=== PATIENT | female | born 1945 | race Caucasian/White ===

== ENCOUNTER → 2016-09-29 | Outpatient (CLI) | payer OTHER | LOC: FIMAGING 11:07 | DX: Z12.31 Encounter for screening mammogram for malignant neoplasm of breast (principal) | CPT/HCPCS: G0202 ==

== ENCOUNTER 2016-11-16 08:17 | Day surgery (SDC) | payer OTHER ==
[2016-11-16] MEDS ORDERED: fentaNYL 100 MCG/2 ML INJ ONE (08:56)
[2016-11-16] MEDS ORDERED: PROPOFOL 200 MG/20 ML VIAL ONE (08:57)
[2016-11-16] MEDS ORDERED: MIDAZOLAM 2 MG/2 ML VIAL ONE (10:12)
[2016-11-16] MEDS ORDERED: LIDO/EPI 1% **Not for Epidural 20 ML MDV ONE (10:23)
--- NOTE | 2016-11-16 11:46 | GOP ---
[f rep st] OPERATIVE REPORT DATE OF OPERATION: SURGEON: Rachael Harrington MD ANESTHESIA: General with LMA. ANESTHESIOLOGIST: Terrell Rodriguez MD. 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 PROCEDURE PERFORMED: Wide local excision of perineum. FINDINGS: A very vague-appearing white lesion on the perineum. It was probably about 4 x 4 mm in t he midline. Full exam of the labia, external genitalia, as well as the anus done and no other signi ficant findings noted. ESTIMATED BLOOD LOSS: Minimal. INDICATIONS: Patient is a 71-year-old, who was noted at her annual exam to have a lesion on the per ineum. Resection of this in the office showed high-grade dysplasia with positive margins throughout . Recommend wide local excision to remove any residual tissue, and also to have negative margins of at least 0.5 cm, and also hopefully to prevent recurrence. DESCRIPTION OF PROCEDURE: With informed consent signed, patient taken to the operative room, placed under general anesthesia. Placed in the low dorsal lithotomy position. Bladder previously emptied . Incision site area injected with 1% lidocaine with epinephrine, and then marker used to designate excision area, measuring about 1 cm lateral on each side of the perineum, and the 3-4 mm into the i ntroitus, and onto the perineum. In elliptical-like fashion scalpel used to remove the marked area, and this was handed off for specimen, and then 4-0 Monocryl used to close the excision edges in int errupted sutures. Hemostasis was noted. Patient placed in supine position, awakened in the operati ng room, and taken to the recovery room in stable condition. Tolerated procedure well. /[id number]/MODL
== END 2016-11-16 13:33 | disposition home or self-care (01) ==
LOC: FSGY 08:17
PROVIDERS: ATTEND Obstetrics & Gynecology Gynecology
PROC: 0UBMXZZ Excision of Vulva, External Approach (ICD-10-PCS; principal; 2016-11-16 09:45)
DX: D07.1 Carcinoma in situ of vulva (principal); I10 Essential (primary) hypertension; G47.33 Obstructive sleep apnea (adult) (pediatric); E11.9 Type 2 diabetes mellitus without complications
CPT/HCPCS: J2250; J2704; J3010

== ENCOUNTER 2017-06-06 18:06 | Inpatient (IN) | payer OTHER ==
--- NOTE | 2017-06-06 18:29 | EDPHY ---
H & P Stated Complaint: Right Shoulder pain after fall Time Seen by Provider: 06/06/17 18:17 HPI/ROS: CHIEF COMPLAINT: Right elbow and right shoulder pain post mechanical fall HISTORY OF PRESENT ILLNESS: 72-year-old female with up-to-date tetanus arrives via ambulance, not a trauma activation, after she was walking [place] of the recreation center after a yoga class, stepped in a pothole that she did not see in the dark, fell onto her right shoulder and elbow. Complaining of pain to right shoulder and elbow. Abrasion to right elbow dorsal aspect. No head injury. No hand or wrist pain free. No back pain or injury. No midline C- spine pain or injury. No alcohol or drug use. No loss of consciousness. PRIMARY CARE PROVIDER: Dr. Azalia Cordero REVIEW OF SYSTEMS: A ten point review of systems was performed and is negative with the exception of the items mentioned in the HPI PAST MEDICAL/SURGICAL HISTORY: no anticoagulant use, tetanus is up-to-date SOCIAL HISTORY: denies alcohol use at time of incident PHYSICAL EXAM 1) GENERAL: Well-developed, well-nourished, alert and oriented. Appears anxious uncomfortable. Answering questions appropriately. 2) HEAD: Normocephalic, atraumatic 3) HEENT: Pupils equal, round, reactive to light bilaterally. Negative Horners. Nasopharynx, oropharynx, clear. No deformity or angulation of nose. No septal hematoma. No rhinorrhea. No oral trauma. Ears bilaterally with normal tympanic membranes. No hemotympanum. No fluid or blood in the external auditory canal. No raccoon eyes. No Shoemaker sign. 4) NECK: No cervical collar is on. Posterior cervical spine is nontender, no stepoff, no effusion. Full range of motion which does not elicit any midline cervical spine pain, no posterior midline tenderness, no step-off. 5) LUNGS: Clear to auscultation bilaterally, no wheezes, no rhonchi, no retractions. No obvious signs of trauma. No chest wall pain. No flaring, no grunting. Moving symmetrically. No crepitus. 6) HEART: Regular rate and rhythm, 7) ABDOMEN: No guarding, no rebound, no focal tenderness, no peritoneal signs, no signs of trauma, no ecchymosis 8) MUSCULOSKELETAL: Right upper extremity: Guarding right shoulder, tender to palpation right lateral shoulder. No visible or palpable deformity. No tenting of skin. Puncture wound or laceration. Abrasion to the right dorsal elbow all with so she had pain. No radial head pain. Otherwise the humerus, forearm, wrist hand are nontender. Radial ulnar median nerve function intact distally with brisk pulses and capillary refill. Otherwise, Moving all extremities, no focal areas of tenderness, no obvious trauma. 9) BACK: No midline vertebral tenderness, no fluctuance, no step-off, no obvious trauma, no visual or palpable abnormality. 10) SKIN: abrasion right dorsal elbow DIFFERENTIAL DIAGNOSIS: in no particular order including but not limited to fracture, dislocation, sprain, strain - Personal History Current Tetanus/Diphtheria Vaccine: Yes Current Tetanus Diphtheria and Acellular Pertussis (TDAP): Yes - Medical/Surgical History Hx Asthma: No Hx Chronic Respiratory Disease: No Hx Diabetes: No Hx Cardiac Disease: No Hx Renal Disease: No Hx Cirrhosis: No Hx Alcoholism: No Hx HIV/AIDS: No Hx Splenectomy or Spleen Trauma: No Other PMH: PMH: anxiety, depression, hypothriod, high cholesterol,. PSH: hip replacement right, - Social History Smoking Status: Former smoker Constitutional: Initial Vital Signs Temperature (C) 36.0 C 06/06/17 18:11 Heart Rate 62 06/06/17 18:11 Respiratory Rate 18 06/06/17 18:11 Blood Pressure 127/83 H 06/06/17 18:11 O2 Sat (%) 100 06/06/17 18:11 O2 Delivery Mode Room Air Allergies/Adverse Reactions: scallops Allergy (Verified 11/04/15 09:34) Home Medications: Medication Instructions Recorded Ascorbic Acid [Vitamin C 500 mg 500 mg PO DAILY 09/27/15 (*)] Aspirin EC [Aspirin EC 81 mg (*)] 81 mg PO MOWEFR 09/27/15 Cholecalciferol Vit D3 [Vitamin D3 4,000 units PO DAILY 09/27/15 2000 units] Herbals/Supplements -Info Only 1 ea PO DAILY 09/27/15 Levothyroxine [Synthroid 75 mcg 37.5 mcg PO WEFR@06 09/27/15 (*)] Levothyroxine [Synthroid 75 mcg 75 mcg PO DAILY06 09/27/15 (*)] Multivitamins [Multivitamin (*)] 1 each PO DAILY 09/27/15 [place]-3 Fatty Acids [Fish Oil 1000 2,000 mg PO DAILY 09/27/15 mg (*)] Simvastatin [Zocor] 20 mg PO HS 09/27/15 Venlafaxine Xr [Effexor Xr 75MG 150 mg PO DAILY 09/27/15 (*)] Acetaminophen [Tylenol 325mg (*)] 325 - 650 mg PO Q4 PRN #0 tab 11/16/15 Medical Decision Making - Diagnostics Imaging Results: Imaging Impressions Shoulder X-Ray 06/06/17 18:20 Impression: Humeral neck fracture, comminuted, with the greater tuberosity completely fractured as a separate piece. Elbow X-Ray 06/06/17 18:26 Impression: 1. No fracture. 2. No radiopaque soft tissue foreign body within the laceration seen. ED Course/Re-evaluation: Care of patient under supervision of secondary supervising physician Dr Padilla with whom I discussed care/case 728 pm: Re-evaluation, patient complaining of continued pain, has expressed concern about being discharged she lives by herself. 8:00 p.m.: Re-evaluation, complaining of continued pain. We discussed the risks benefits of being discharged home. Given patient's age and difficulty controlling her pain, she was by herself, I do not think that discharge home is appropriate, she agrees with this. Plan will be admission with orthopedic consultation, pain control, PT OT. 8:05 p.m.: Consultation with hospitalist Dr. Lanre Posada who will admit patient, request patient be Inpatient 8:16 p.m.: Phone consultation with Orthopedics on-call Dr. Pedro Santos will consult orthopedics. He requested noncontrast CT be obtained. - Data Points Medications Given: Discontinued Medications Ketorolac Tromethamine (Toradol) 15 mg IVP EDNOW ONE Stop: 06/06/17 19:30 Last Admin: 06/06/17 19:53 Dose: 15 mg Oxycodone/Acetaminophen (Percocet 5/325) 1 tab PO EDNOW ONE Stop: 06/06/17 19:14 Last Admin: 06/06/17 19:14 Dose: 1 tab Departure - Departure Disposition: [facility] Clinical Impression: Abrasion of right elbow Qualifiers: Encounter type: initial encounter Qualified Code(s): S50.311A - Abrasion of right elbow, initial encounter Fracture of neck of right humerus Qualifiers: Encounter type: initial encounter Fracture type: closed Qualified Code(s): S42.211A - Unspecified displaced fracture of surgical neck of right humerus, initial encounter for closed fracture Condition: Fair Referrals: Patient,NotPresent [Unknown] - As per Instructions
[2017-06-06] MEDS ORDERED: OXYCODONE/APAP 5/325 TAB ONE (19:08)
[2017-06-06] MEDS ORDERED: OXYCODONE/APAP 5/325 TAB PO ONE (19:13)
[2017-06-06] MEDS ORDERED: KETOROLAC 30 MG/1 ML SDV IVP ONE (19:29)
[2017-06-06 21:31] LABS: % IMMATURE GRANULYOCYTES 0.5 % (0.0-1.1); ABSOLUTE IMMATURE GRANULOCYTES 0.05 10^3/uL (0.00-0.10); ADD DIFF? NO; ADD MORPH? NO; ADD SCAN? NO; ATYPICAL LYMPHOCYTE FLAG 0 (0-99); FRAGMENT RBC FLAG 0 (0-99); HEMATOCRIT 42.5 % (38.0-47.0); HEMOGLOBIN 15.3 g/dL (12.6-16.3); LEFT SHIFT FLG 0 (0-99); LIPEMIA HEMOLYSIS FLAG 90 (0-99); MEAN CELL HEMOGLOBIN 31.4 pg (27.9-34.1); MEAN CELL VOLUME 87.1 fL (81.5-99.8); MEAN PLATELET VOLUME 9.3 fL (8.7-11.7); PLATELET CLUMPS FLAG 0 (0-99); PLATELET COUNT 187 10^3/uL (150-400); RED BLOOD CELL COUNT 4.88 10^6/uL (4.18-5.33); RED CELL DISTRIBUTION WIDTH 13.2 % (11.5-15.2)
[2017-06-06 21:41] LABS: INR 0.96 (0.83-1.16)
[2017-06-06 21:42] LABS: APTT 27.3 SEC (23.0-38.0)
[2017-06-06 21:45] LABS: ANION GAP 14 mEq/L (8-16); CARBON DIOXIDE 22 mEq/l (22-31); CHLORIDE 105 mEq/L (97-110); CREATININE 0.6 mg/dL (0.6-1.0); GLOMERULAR FILTRATION RATE > 60; GLUCOSE 99 mg/dL (70-100); POTASSIUM 3.5 mEq/L (3.5-5.2); SODIUM 141 mEq/L (134-144)
[2017-06-06] MEDS ORDERED: ONDANSETRON DISINTEGRATING 4 MG TAB PO PRN (22:07)
[2017-06-06] MEDS ORDERED: HYDROmorphone HCL/NS/PF 0.4 MG/2 ML SYR IVP PRN (22:07)
[2017-06-06] MEDS ORDERED: ONDANSETRON 4 MG/2 ML VIAL IVP PRN (22:07)
[2017-06-06] MEDS: oxyCODONE IR 5 MG TAB PO PRN (22:26)
--- NOTE | 2017-06-06 22:55 | PDGENHP ---
History and Physical - Chief Complaint Fall, R arm injury - History of Present Illness 72 yo F w/ hypothyroid presents after a fall. She was leaving yoga tonight and stepped in a pothole in the dark. She fell and injured her R arm/shoulder. Upon arrival in the ED she was noted to have a humeral neck fracture. She lives independently and was concerned about her ability to function with the pain so she was admitted for orthopedic consultation and pain control. Currently her pain is well controlled after oral opiates in the ED. History Information - Allergies/Home Medication List Allergies/Adverse Reactions: scallops Allergy (Verified 11/04/15 09:34) Home Medications: Ascorbic Acid [Vitamin C 500 mg (*)] 500 mg PO DAILY 09/27/15 [Last Taken ] Aspirin EC [Aspirin EC 81 mg (*)] 81 mg PO MOWEFR 09/27/15 [Last Taken 06/04/17] Cholecalciferol Vit D3 [Vitamin D3 2000 units] 4,000 units PO DAILY 09/27/15 [ Last Taken 06/05/17] Herbals/Supplements -Info Only 1 ea PO DAILY 09/27/15 [Last Taken 06/05/17] Levothyroxine [Synthroid 75 mcg (*)] 37.5 mcg PO WEFR@06 09/27/15 [Last Taken ] Levothyroxine [Synthroid 75 mcg (*)] 75 mcg PO DAILY06 09/27/15 [Last Taken ] Multivitamins [Multivitamin (*)] 1 each PO DAILY 09/27/15 [Last Taken 06/06/17] [place]-3 Fatty Acids [Fish Oil 1000 mg (*)] 2,000 mg PO DAILY 09/27/15 [Last Taken 06/05/17] Simvastatin [Zocor] 20 mg PO HS 09/27/15 [Last Taken 06/05/17] Venlafaxine Xr [Effexor Xr 75MG (*)] 150 mg PO DAILY 09/27/15 [Last Taken ] I have personally reviewed and updated: family history, medical history - Past Medical History Additional medical history: Hypothyroid - Surgical History Additional surgical history: Hip arthroplasty - Family History Positive for: cancer - Social History Smoking Status: Former smoker Review of Systems Review of Systems: ROS: 10pt was reviewed & negative except for what was stated in HPI & below Physical Exam Physical Exam: Temp Pulse Resp BP Pulse Ox 36.4 C 64 17 127/77 H 92 06/06/17 21:41 06/06/17 21:41 06/06/17 21:41 06/06/17 21:41 06/06/17 21:41 Constitutional: no apparent distress, uncomfortable Eyes: PERRL, EOMI Ears, Nose, Mouth, Throat: moist mucous membranes, no oral mucosal ulcers Cardiovascular: regular rate and rhythym, systolic murmur Respiratory: no respiratory distress, clear to auscultation Gastrointestinal: normoactive bowel sounds, soft, non-tender abdomen Skin: warm, normal color Musculoskeletal: other (R arm in sling) Neurologic: AAOx3, CN II-XII Intact Psychiatric: interacting appropriately, not anxious Lab Data & Imaging Review 06/06/17 21:28 06/06/17 21:28 WBC 11.04 10^3/uL (3.80-9.50) H 06/06/17 21: RBC 4.88 10^6/uL (4.18-5.33) 06/06/17 21:28 Hgb 15.3 g/dL (12.6-16.3) 06/06/17 21:28 Hct 42.5 % (38.0-47.0) 06/06/17 21: MCV 87.1 fL (81.5-99.8) 06/06/17 21:28 MCH 31.4 pg (27.9-34.1) 06/06/17 21: MCHC 36.0 g/dL (32.4-36.7) 06/06/17 21:28 RDW 13.2 % (11.5-15.2) 06/06/17 21:28 Plt Count 187 10^3/uL (150-400) 06/06/17 21:28 MPV 9.3 fL (8.7-11.7) 06/06/17 21:28 Neut % (Auto) 84.6 % (39.3-74.2) H 06/06/17 21: Lymph % (Auto) 9.1 % (15.0-45.0) L 06/06/17 21:28 Ness % (Auto) 5.2 % (4.5-13.0) 06/06/17 21:28 Eos % (Auto) 0.4 % (0.6-7.6) L 06/06/17 21: Baso % (Auto) 0.2 % (0.3-1.7) L 06/06/17 21:28 Nucleat RBC Rel Count 0.0 % (0.0-0.2) 06/06/17 21: Absolute Neuts (auto) 9.35 10^3/uL (1.70-6.50) H 06/06/17 21:28 Absolute Lymphs (auto) 1.01 10^3/uL (1.00-3.00) 06/06/17 21: Absolute Monos (auto) 0.57 10^3/uL (0.30-0.80) 06/06/17 21: Absolute Eos (auto) 0.04 10^3/uL (0.03-0.40) 06/06/17 21: Absolute Basos (auto) 0.02 10^3/uL (0.02-0.10) 06/06/17 21: Absolute Nucleated RBC 0.00 10^3/uL (0-0.01) 06/06/17 21: Immature Gran % 0.5 % (0.0-1.1) 06/06/17 21: Immature Gran # 0.05 10^3/uL (0.00-0.10) 06/06/17 21: PT 13.0 SEC (12.0-15.0) 06/06/17 21:28 INR 0.96 (0.83-1.16) 06/06/17 21:28 APTT 27.3 SEC (23.0-38.0) 06/06/17 21:28 Sodium 141 mEq/L (134-144) 06/06/17 21:28 Potassium 3.5 mEq/L (3.5-5.2) 06/06/17 21:28 Chloride 105 mEq/L (97-110) 06/06/17 21:28 Carbon Dioxide 22 mEq/l (22-31) 06/06/17 21:28 Anion Gap 14 mEq/L (8-16) 06/06/17 21:28 BUN 20 mg/dL (7-23) 06/06/17 21:28 Creatinine 0.6 mg/dL (0.6-1.0) 06/06/17 21:28 Estimated GFR > 60 06/06/17 21:28 Glucose 99 mg/dL (70-100) 06/06/17 21:28 Calcium 9.0 mg/dL (8.5-10.4) 06/06/17 21:28 Imaging Review: CT RUE showing comminuted humeral neck fracture. Assessment & Plan Assessment: 72 yo F w/ hypothyroid presents after fall c/b R humeral neck fracture. Plan: 1. R humeral neck fracture - Comminuted, s/p fall while leaving yoga this evening. Patient admitted for orthopedic consultation and pain control. - Orthopedics consulted, will se patient in the morning - Oxycodone, Dilaudid PRN for pain control - PT/OT consultation 2. Hypothyroid - Continue home LTX Diet - NPO @ MT Ppx - SCDs Code - Full Dispo - Admit to observation status
[2017-06-07] MEDS: oxyCODONE IR 5 MG TAB PO PRN ×4 (04:20→21:26)
[2017-06-07 05:23] LABS: % IMMATURE GRANULYOCYTES 0.2 % (0.0-1.1); ABSOLUTE IMMATURE GRANULOCYTES 0.02 10^3/uL (0.00-0.10); ADD DIFF? NO; ADD MORPH? NO; ADD SCAN? NO; ATYPICAL LYMPHOCYTE FLAG 0 (0-99); FRAGMENT RBC FLAG 0 (0-99); HEMATOCRIT 41.8 % (38.0-47.0); HEMOGLOBIN 14.3 g/dL (12.6-16.3); LEFT SHIFT FLG 0 (0-99); LIPEMIA HEMOLYSIS FLAG 90 (0-99); MEAN CELL HEMOGLOBIN 30.4 pg (27.9-34.1); MEAN CELL HEMOGLOBIN CONCENTR. 34.2 g/dL (32.4-36.7); MEAN CELL VOLUME 88.9 fL (81.5-99.8); MEAN PLATELET VOLUME 9.9 fL (8.7-11.7); PLATELET CLUMPS FLAG 10 (0-99); PLATELET COUNT 220 10^3/uL (150-400); RED CELL DISTRIBUTION WIDTH 13.2 % (11.5-15.2)
[2017-06-07 05:43] LABS: ANION GAP 13 mEq/L (8-16); CALCIUM 8.8 mg/dL (8.5-10.4); CARBON DIOXIDE 25 mEq/l (22-31); CHLORIDE 104 mEq/L (97-110); CREATININE 0.7 mg/dL (0.6-1.0); GLOMERULAR FILTRATION RATE > 60; GLUCOSE 106 mg/dL (70-100); POTASSIUM 4.3 mEq/L (3.5-5.2); SODIUM 142 mEq/L (134-144)
--- NOTE | 2017-06-07 10:57 | ASMTCMCOM ---
CM Note CM Note Notes: Chart reviewed. Sustained humeral neck fx after fall last night. Met with patient to review dc POC she lives independently, She reports family is rallying to provide care coverage. Surgery for fx of humeral neck in am. NTBD as of yet. CM to follow as needs arise. Date Signed: 06/07/2017 10:57 AM Electronically Signed By:Cynthia Reid RN
[2017-06-07] MEDS: ACETAMINOPHEN 325 MG TAB PO PRN ×2 (12:58→21:26)
[2017-06-07] MEDS ORDERED: VENLAFAXINE XR 75 MG CAP PO SCH (13:32)
--- NOTE | 2017-06-07 13:36 | HOSPPROG ---
Hospitalist Progress Note Assessment/Plan: DIAGNOSES: -acute right proximal humerus fracture, comminuted and requiring surgical reduction and fixation which is planned for tomorrow -pain management -chronic sleep apnea, uses CPAP at home; increased risk of respiratory complications due to pain and anesthesia meds, decreased mobility -chronic anxiety and depression on medication at home -osteoporosis by definition; she does take high-dose vitamin D but not on other medicine for this at home PLANS: -continue pain management here while awaiting surgery -DVT prophylaxis -will want to use CPAP here. I have asked her to trying get her CPAP from home but she is unable to use a CPAP from the hospital, have asked respiratory therapy to see her for that -continue her usual home medicines -upon discharge she should follow up with her primary care to evaluate the most effective management for maintaining or increasing bone density SUBJECTIVE: Still with a lot of pain at her shoulder greatly increase with even slight movement Not short of breath now but she does have sleep apnea and uses CPAP at night at home Concerned that she needs her anxiety medicine OBJECTIVE Vitals reviewed: Mild hypertension otherwise normal without fever Exam: alert oriented looks mildly uncomfortable right now Shoulder in sling Good circulation and sensation distally in the right upper extremity skin warm dry color ok resps not labored lungs clear BSs heart regular abd soft nondistended nontender, bowel sounds present limbs warm, no edema iv site ok Objective: Vital Signs Temp Pulse Resp BP Pulse Ox 36.6 C 73 16 153/92 H 95 06/07/17 11:16 06/07/17 11:16 06/07/17 11:16 06/07/17 11:16 06/07/17 11:16 Laboratory Results 06/07/17 04:15 06/07/17 04:15 PT 13.0 SEC (12.0-15.0) 06/06/17 21:28 INR 0.96 (0.83-1.16) 06/06/17 21:28 ICD10 Worksheet Patient Problems: Problems Problem Status Onset Abrasion of right elbow Acute Fracture of neck of right humerus Acute Osteoarthritis of right hip Acute
[2017-06-07] MEDS ORDERED: LR 1,000 ML IV SCH (16:00)
[2017-06-07] MEDS: VENLAFAXINE XR 75 MG CAP PO SCH (16:40)
[2017-06-07] MEDS ORDERED: NON-FORMULARY NEW DRUG (Simvastatin [Zocor] 20 MG) PO SCH (21:00)
[2017-06-07] MEDS: ATORVASTATIN CALCIUM 10 MG TAB PO SCH (21:27)
[2017-06-08] MEDS: oxyCODONE IR 5 MG TAB PO PRN ×2 (02:01→07:39)
[2017-06-08] MEDS ORDERED: TRANEXAMIC ACID 1,000 MG in NS 100 ML IV ONE (06:00)
[2017-06-08] MEDS ORDERED: LEVOTHYROXINE 75 MCG TAB PO SCH (06:00)
[2017-06-08] MEDS ORDERED: ceFAZolin 2 GM/SWFI 2 GM/20 ML SYR IVP ONE (06:00)
[2017-06-08] MEDS: ACETAMINOPHEN 325 MG TAB PO PRN (07:38)
[2017-06-08] MEDS: LEVOTHYROXINE 75 MCG TAB PO SCH (07:39)
[2017-06-08] MEDS ORDERED: VENLAFAXINE XR 75 MG CAP PO SCH (09:00)
--- NOTE | 2017-06-08 09:03 | PDMN ---
Medical Necessity Medical necessity: Change to IP, as of 06/07/17, per MD; los >2 mn for acute R proximal humerus fx; admit for surgical reduction/fixation & pain management; hx sleep apnea; per progress note & order 06/07/17
[2017-06-08] MEDS: VENLAFAXINE XR 75 MG CAP PO SCH ×2 (09:44→09:45)
[2017-06-08] MEDS: CHOLECALCIFEROL VIT D3 2,000 UNITS TAB/CAP PO SCH (10:03)
[2017-06-08] MEDS: ASCORBIC ACID 500 MG TAB PO SCH (10:03)
[2017-06-08] MEDS: MULTIVITAMINS 1 EACH TAB PO SCH (10:03)
[2017-06-08] MEDS: OMEGA-3 FATTY ACIDS 1,000 MG CAP PO SCH (10:03)
[2017-06-08] MEDS ORDERED: ceFAZolin 2 GM/SWFI 20 ML SYR IVP ONE (11:47)
[2017-06-08] MEDS ORDERED: ROPIVACAINE HCL 20 MG/10 ML INJ EP ONE (11:59)
[2017-06-08] MEDS ORDERED: fentaNYL 100 MCG/2 ML INJ ONE (12:03)
[2017-06-08] MEDS ORDERED: ROPIVACAINE HCL 150 MG/30 ML INJ ONE (12:03)
[2017-06-08] MEDS ORDERED: PROPOFOL/EMULSION 500 MG/50 ML BOTTLE IV ONE (12:15)
[2017-06-08] MEDS ORDERED: MIDAZOLAM 2 MG/2 ML VIAL ONE (12:15)
[2017-06-08] MEDS ORDERED: SUGAMMADEX SODIUM 200 MG/2 ML VIAL IVP ONE (13:09)
[2017-06-08] MEDS ORDERED: ROCURONIUM 50 MG/5 ML VIAL ONE (13:09)
[2017-06-08] MEDS ORDERED: ONDANSETRON 4 MG/2 ML VIAL ONE (13:09)
[2017-06-08] MEDS ORDERED: LIDOCAINE 2% 5 ML SDV ONE (13:09)
[2017-06-08] MEDS ORDERED: ASPIRIN EC 81 MG TAB PO SCH (13:22)
[2017-06-08] MEDS ORDERED: NALOXONE HCL 0.4 MG/ML INJ IVP PRN (13:34)
[2017-06-08] MEDS ORDERED: ALBUTEROL 3 ML DEYVIAL IH PRN (13:34)
[2017-06-08] MEDS ORDERED: DEXAMETHASONE 4 MG/ML VIAL IVP PRN (13:34)
[2017-06-08] MEDS ORDERED: fentaNYL 100 MCG/2 ML INJ IVP PRN (13:34)
--- NOTE | 2017-06-08 13:34 | PDANEPAE ---
ANE Past Medical History - Cardiovascular History Hx Hypertension: Yes Hx Arrhythmias: No Hx Chest Pain: No Hx Coronary Artery / Peripheral Vascular Disease: No Hx CHF / Valvular Disease: No Hx Palpitations: No Cardiovascular History Comment: SLIGHTLY ELEVATED BP, NO LONGER ON MEDS - Pulmonary History Hx COPD: No Hx Asthma/Reactive Airway Disease: No Hx Recent Upper Respiratory Infection: No Hx Oxygen in Use at Home: No Hx Sleep Apnea: Yes Sleep Apnea Screening Result - Last Documented: Positive Pulmonary History Comment: ANDERSON DX 2011 USES C-PAP - Neurologic History Hx Cerebrovascular Accident: No Hx Seizures: No Hx Dementia: No - Endocrine History Hx Diabetes: No Endocrine History Comment: HYPOTHYROID - Renal History Hx Renal Disorders: No - Liver History Hx Hepatic Disorders: No - Neurological & Psychiatric Hx Hx Neurological and Psychiatric Disorders: Yes Neurological / Psychiatric History Comment: HX POSITIONAL VERTIGO - NOT RECENTLY. DEPRESSION - Cancer History Hx Cancer: No - Congenital Disorder History Hx Congenital Disorders: No - GI History Hx Gastrointestinal Disorders: No - Other Health History Other Health History: DJD,. R HIP ARTHRITIS,. NON DISPLACED L WRIST FX AFTER FALL 12/2014. P;REV PLANTAR FASCITIS - Chronic Pain History Chronic Pain: No - Surgical History Prior Surgeries: R HAMIDA. L KNEE SCOPE. TONSILLECTOMY ANE Review of Systems Review of Systems: ANE Patient History - Allergies Allergies/Adverse Reactions: scallops Allergy (Verified 11/04/15 09:34) - Home Medications Home Medications: Ascorbic Acid [Vitamin C 500 mg (*)] 500 mg PO DAILY 09/27/15 [Last Taken ] Aspirin EC [Aspirin EC 81 mg (*)] 81 mg PO MOWEFR 09/27/15 [Last Taken 06/04/17] Cholecalciferol Vit D3 [Vitamin D3 2000 units] 4,000 units PO DAILY 09/27/15 [ Last Taken 06/05/17] Herbals/Supplements -Info Only 1 ea PO DAILY 09/27/15 [Last Taken 06/05/17] Levothyroxine [Synthroid 75 mcg (*)] 37.5 mcg PO SUWE@09/27/15 [Last Taken ] Levothyroxine [Synthroid 75 mcg (*)] 75 mcg PO DAILY06 09/27/15 [Last Taken ] Multivitamins [Multivitamin (*)] 1 each PO DAILY 09/27/15 [Last Taken 06/06/17] [place]-3 Fatty Acids [Fish Oil 1000 mg (*)] 2,000 mg PO DAILY 09/27/15 [Last Taken 06/05/17] Simvastatin [Zocor] 20 mg PO HS 09/27/15 [Last Taken 06/05/17] Venlafaxine Xr [Effexor Xr 75MG (*)] 225 mg PO DAILY 09/27/15 [Last Taken ] - NPO status NPO Since - Liquids (Date): 06/08/17 NPO Since - Liquids (Time): 10:30 NPO Since - Solids (Date): 06/07/17 NPO Since - Solids (Time): 21:00 - Smoking Hx Smoking Status: Former smoker - Family Anes Hx Family Hx Anesthesia Complications: NONE ANE Labs/Vital Signs - Labs Result Diagrams: 06/07/17 04:15 06/07/17 04:15 - Vital Signs Blood Pressure: 174/96 Heart Rate: 70 Respiratory Rate: 18 O2 Sat (%): 92 Height: 158.75 cm Weight: 79.379 kg ANE Physical Exam - Airway Neck exam: decreased ROM, increased neck circumference, short neck Mallampati Score: Class 3 Mouth exam: normal dental/mouth exam, small mouth opening - Pulmonary Pulmonary: no respiratory distress, no rales or rhonchi, reduced air movement - Cardiovascular Cardiovascular: regular rate and rhythym, no murmur, rub, or gallop, systolic murmur - ASA Status ASA Status: III ANE Anesthesia Plan Anesthesia Plan: general endotracheal anesthesia Regional Anesthesia: continuous NB, supraclavicular BP NB Specialized Airway: video laryngoscope (dfficult airway)
[2017-06-08] MEDS ORDERED: ROPIVACAINE NB SCH (14:00)
[2017-06-08] MEDS ORDERED: PUMP SET NB SCH (14:00)
[2017-06-08] MEDS ORDERED: ceFAZolin 1 GM VIAL ONE (14:02)
--- NOTE | 2017-06-08 15:01 | GOP ---
[f rep st] OPERATIVE REPORT DATE OF OPERATION: 06/08/2017 SURGEON: Moisés Drake MD [employer] OPERATOR: Pedro Santos MD, medically required for difficulty reduction and open reduction internal fixation of proximal humerus fracture with careful retraction of vital neurovascular structures. PREOPERATIVE DIAGNOSIS: Displaced three-part impacted proximal humerus fracture. POSTOPERATIVE DIAGNOSIS: Displaced three-part impacted proximal humerus fracture. PROCEDURE PERFORMED: FINDINGS: ESTIMATED BLOOD LOSS: Minimal. INDICATIONS: A 72-year-old female who was [facility] [place] and fell onto her right shoulder. She was seen by Dr. Pedro Santos in the emergency room. Admitted to the hospitalist. Proximal humerus fract ure. Right-hand dominant. CT scan was obtained which showed a displaced proximal humerus fracture. The patient elects for operative treatment. DESCRIPTION OF PROCEDURE: The patient identified in the preoperative holding area, consent, laterali ty and preoperative antibiotics were confirmed delivered. All questions were answered. The right up per extremity was identified. The patient was brought into the operating room. Interscalene block w ith an interscalene catheter. General anesthesia. Beach chair position 30 degree head of bed. Righ t upper extremity was prepped and draped in the usual sterile fashion. [place] draping. A surgical ti me-out was performed. The standard deltopectoral interval. Cephalic vein was robust. This was taken along with the deltoi d. The fracture was easily identified. Hematoma was identified. A tagging stitch was placed over t he greater tuberosity and the rotator cuff. This was pulled anteriorly. With slight adduction and f orward flexion, we were able to reduce the head fairly easily. We held this provisionally with guide pins and took fluoroscopic views in the [place] view. A small plate was chosen. We had a nice redu ction. Appropriate slight varus to the head. The greater tuberosity was down and not impinging. We placed the sliding hole screws and then chose select head locking screws and placed the final compre ssion screw distally. We washed out the wound with 500 cc of warm normal saline. Took final fluoros copic films. The screws were not penetrating the joint on the fluoroscopic films and internal membership sales advisor al rotation of about 45-45 degrees, internal external rotation. A 2-0 PDS was running deep subcutane ous, 3-0 Monocryl for superficial subcu and 3-0 Prolene. Mastisol, Steri-Strips used. Mepilex dressi ng used. Then, 10 cc of 0.2% ropivacaine were injected throughout the incision prior to the dressing. PROCEDURE: 1. Open reduction, internal fixation of proximal humerus. 2. Intraoperative fluoroscopy interpreted by surgeon. IMPLANTS: Synthes proximal humeral locking plate. COMPLICATIONS: None. TOTAL SURGICAL TIME: 90 minutes. DISPOSITION: Extubated to the PACU in stable condition. /[id number]/MODL
--- NOTE | 2017-06-08 15:53 | ASMTCMCOM ---
CM Note CM Note Notes: Pt had surgery today for humerus fx, PT/OT evals pending. CM to follow for d/c needs. Date Signed: 06/08/2017 03:52 PM Electronically Signed By:YONY Martino
--- NOTE | 2017-06-08 15:56 | HOSPPROG ---
Hospitalist Progress Note Assessment/Plan: DIAGNOSES: -acute right proximal humerus fracture, comminuted and requiring status post open reduction and fixation with hardware -pain management -chronic sleep apnea, uses CPAP at home, high risk of respiratory complications due to this -chronic anxiety and depression on medication at home -osteoporosis by definition; she does take high-dose vitamin D but not on other medicine for this at home PLANS: -continue pain management, occupational physical therapy assessments -DVT prophylaxis -continue CPAP here. I have asked her to trying get her CPAP from home but she is unable to use a CPAP from the hospital, have asked respiratory therapy to see her for that -continue her usual home medicines -upon discharge she should follow up with her primary care to evaluate the most effective management for maintaining or increasing bone density SUBJECTIVE: I examined the patient in the recovery room after surgery today; her surgery was open reduction internal fixation of proximal humerus with 1 plate 7 fixation screws At this point she has little pain, no nausea no shortness of breath no headache no other concerning symptoms Per the recovery room nurse she has a smooth visit in the recovery room, and there were no noted complications in surgery OBJECTIVE Vitals reviewed: Stable Exam: alert oriented looks reasonably comfortable on relax at this time No sign of any bleeding at her shoulder Good circulation and sensation distally in the right upper extremity skin warm dry color ok resps not labored lungs clear BSs heart regular iv site ok Objective: Vital Signs Temp Pulse Resp BP Pulse Ox 36.5 C 70 17 113/69 93 06/08/17 15:17 06/08/17 13:34 06/08/17 15:15 06/08/17 15:15 06/08/17 15:15 06/07/17 06/08/17 06/09/17 06:59 06:59 06:59 Intake Total 1375 Output Total 300 Balance 1075 PT 13.0 SEC (12.0-15.0) 06/06/17 21:28 INR 0.96 (0.83-1.16) 06/06/17 21:28 ICD10 Worksheet Patient Problems: Problems Problem Status Onset Abrasion of right elbow Acute Fracture of neck of right humerus Acute Osteoarthritis of right hip Acute
[2017-06-08] MEDS ORDERED: ceFAZolin 2 GM/SWFI 2 GM/20 ML SYR IVP SCH (20:00)
--- NOTE | 2017-06-08 20:06 | GCON ---
[f rep st] CONSULTATION ORTHOPEDIC CONSULTATION DATE OF CONSULTATION: 06/07/2017 This is a repeat dictation as the original dictation from June 07 was not received and was not pl aced into the chart. Date of initial consultation dictation was June 07 between 3 and 4 p.m. REASON FOR CONSULTATION: Right shoulder injury. HISTORY OF PRESENT ILLNESS: This is a 72-year-old female who tripped in a pothole leaving the [place] and fell onto her right side. She felt immediate pain and inability to use her right upper extremity, presented to the emergency department, diagnosed with proximal humerus fractu re. She was admitted for pain control, has minimal other medical problems. She denied fever, chills , nausea, vomiting, chest pain, shortness of breath, numbness, tingling. PAST MEDICAL HISTORY: Includes hypothyroidism and obstructive sleep apnea. PAST SURGICAL HISTORY: Includes a right total hip arthroplasty. FAMILY HISTORY: Positive for cancer. SOCIAL HISTORY: She is a former smoker. HOME MEDICATIONS: Include vitamin C, 81 mg of aspirin, vitamin D3, herbal supplements, Synthroid, mu ltivitamin, omega-3 fatty acids, simvastatin, and venlafaxine. REVIEW OF SYSTEMS: A 10-point was reviewed and negative except for what was stated in HPI and below. PHYSICAL EXAM: VITAL SIGNS: Stable. GENERAL: She is alert and oriented x3, no acute distress. CH EST: She has easy, nonlabored breathing. ABDOMEN: Soft, nontender. EXTREMITIES: Skin over the af fected area is normal. Right upper extremity is in a sling, and range of motion and strength were de ferred secondary to pain and the acuteness of the injury. There is a mild abrasion over her olecrano n. She has sensation intact to light touch to the axillary, radial, and median nerves. Motor intact to AIN, PIN, and interosseous nerves. She has brisk capillary refill, 2+ radial pulse. LABORATORY DATA: Hemoglobin is 15.3, with a white blood cell count 11.04. IMAGING REVIEWED: CT and x-rays reveal a 3-part proximal humerus fracture with metaphyseal and neck comminution. ASSESSMENT AND PLAN: A 72-year-old female with a right 3-part proximal humerus fracture. Recommend operative fixation, as the patient is active and the fracture is extremely displaced, to improve func tion and decrease pain. Risks of the procedure include the inherent risks of general anesthesia surg vincent, including bleeding, infection, damage to surrounding anatomic structures. Specific to this proc edure, include symptomatic implants, implant failure, delayed or nonunion, humeral head osteonecrosis , possible need of further surgery, possibility of needing shoulder arthroplasty. Patient understood and agreed and wished to proceed with the procedure. She will be n.p.o. after midnight. Hold antic oagulation and anti-inflammatories. Patient understands and agrees. Questions answered. /[id number]/MODL
[2017-06-08] MEDS: ATORVASTATIN CALCIUM 10 MG TAB PO SCH (20:14)
[2017-06-08] MEDS ORDERED: ceFAZolin 2 GM/DEXTROSE 100 ML IV SCH (22:00)
[2017-06-09] MEDS ORDERED: ceFAZolin 2 GM/DEXTROSE 100 ML IV SCH (04:00)
[2017-06-09] MEDS: LEVOTHYROXINE 75 MCG TAB PO SCH (04:27)
[2017-06-09 04:36] VITALS: RESP 16
[2017-06-09 09:04] VITALS: BP 136/63; PULSE 74; TEMP 98.2; O2SAT 93
[2017-06-09] MEDS: CHOLECALCIFEROL VIT D3 2,000 UNITS TAB/CAP PO SCH (09:20)
[2017-06-09] MEDS: OMEGA-3 FATTY ACIDS 1,000 MG CAP PO SCH (09:21)
[2017-06-09] MEDS: VENLAFAXINE XR 75 MG CAP PO SCH (09:21)
[2017-06-09] MEDS: MULTIVITAMINS 1 EACH TAB PO SCH (09:22)
[2017-06-09] MEDS: ASCORBIC ACID 500 MG TAB PO SCH (09:22)
[2017-06-09] MEDS: ACETAMINOPHEN 325 MG TAB PO PRN (09:33)
--- NOTE | 2017-06-09 10:21 | SOAPPROG ---
SOAP Progress Note Assessment/Plan: Assessment:POD#1 s/p R proximal humerus ORIF Plan: NWB to RUE, PT/OT Interscalene block continued for pain mgmt Ambulate frequently IS 10x/hr supplemental O2 prn discharge dispo: home today with outpt pt/ot F/u in 2wks with Dr. Drake 06/09/17 10:17 Subjective: no acute events. Pain well controlled. Denies f/c/cp/sob/n/v. Motor sensation improved with decreased block use. Objective: Vital Signs Temp Pulse Resp BP Pulse Ox 36.8 C 74 16 136/63 H 93 06/09/17 08:00 06/09/17 08:00 06/09/17 08:00 06/09/17 08:00 06/09/17 08:00 06/08/17 06/09/17 06/10/17 05:59 05:59 05:59 Intake Total 1375 Output Total 800 Balance 575 PT 13.0 SEC (12.0-15.0) 06/06/17 21:28 INR 0.96 (0.83-1.16) 06/06/17 21:28 AAOx3 NAD easy non-labored breathing block in place dressign c/d/i Minimal erythema bruising SILT A/R/U/M n's Motor intact AIN/PIN/Inteross n's compartments soft BCR 2+radial pulse. - Time Spent With Patient Time Spent With Patient: 10 - Pending Discharge Pending Discharge Within 24 Hours: Yes Pending Discharge Date: 06/09/17 Pending Discharge Time: 13:00 ICD10 Worksheet Patient Problems: Problems Problem Status Onset Abrasion of right elbow Acute Fracture of neck of right humerus Acute Osteoarthritis of right hip Acute
--- NOTE | 2017-06-09 10:54 | PDDCSUM ---
Discharge Summary Discharge Summary: DISCHARGE DIAGNOSES: -right proximal humerus fracture, comminuted with displacement, status post open reduction internal fixation CONSULTANTS: Dr. Tejeda of Orthopedics PROCEDURES: Open reduction internal fixation right proximal humerus fracture HOSPITAL COURSE SUMMARY: This patient who is fairly healthy overall had a mechanical fall after tripping landing on her right shoulder. She suffered a proximal humerus fracture with a comminuted appearance and some displacement. It was felt that for reasonable joint function she would need surgical correction and she went to the operating room for open reduction internal fixation which was successful and uncomplicated. There been no other acute medical issues or complications here in the hospital. There was no sign that she was having syncope or other medically induced fall when she had her injury. At this time she is eating well up and walking well with no evidence of infection or fever. She has reasonably good pain control. She does not have loss of neurologic function on examine her right upper extremity. She is actually moving her hand her wrist and her elbow fairly well. She is stable for home. She has some friends who are able to provide home care for her but we are looking at further assessments here before she goes to determine if she may need professional home health care PENDING TEST RESULTS: None MEDICATION CHANGES: Total of 60 tablets oxycodone 5 mg are prescribed for as needed pain relief FOLLOW-UP PLAN: She will follow up in the with [facility] in 1 week. She will follow up with outpatient physical occupational therapy in 1 week. She is given a list of hand exercises to do in the meantime Greater than 35 minutes bedside and care coordination time today
--- NOTE | 2017-06-09 14:41 | ASDISCHSUM ---
Discharge Information Plan Status:Home with No Needs Medically Cleared to Leave: Discharge Date:06/09/2017 01:52 PM CM D/C Disposition:Home, Routine, Self-Care ADT D/C Disposition:Home, Routine, Self-Care Projected Discharge Date:06/09/2017 01:52 PM Transportation at D/C:Family Discharge Delay Reason: Follow-Up Date:06/09/2017 01:52 PM Discharge Slot: Final Diagnosis: Placement Information Patient Contact Information Contact Name:ANTONINO Relationship:Other Address: Work Phone: City:[place] Alternate Phone: State/[place] Code:[place] Email: Financial Information Financial Class: Primary Plan Desc:MEDICARE INPATIENT Primary Plan Number:[id number] Secondary Plan Desc[facility] Secondary Plan Number:[id number] Assessment Information LACE LACE Length of stay for Answers: Less than 1 day current admission Acuity / Level of Care Answers: Was the patient admitted to hospital via the emergency department? Yes: Emergency dept visits in Answers: 0 last 6 months Score: 3 Date Signed: 06/07/2017 10:54 AM Electronically Signed By:Cynthia Reid RN [facility] CM Progress Note CM Note CM Note Notes: Chart reviewed. Sustained humeral neck fx after fall last night. Met with patient to review dc POC she lives independently, She reports family is rallying to provide care coverage. Surgery for fx of humeral neck in am. NTBD as of yet. CM to follow as needs arise. Date Signed: 06/07/2017 10:57 AM Electronically Signed By:Cynthia Reid RN [facility] CM Progress Note CM Note CM Note Notes: Pt had surgery today for humerus fx, PT/OT evals pending. CM to follow for d/c needs. Date Signed: 06/08/2017 03:52 PM Electronically Signed By:YONY Martino Case Management Discharge Plan Note Case Management Discharge Discharge Order Complete? Answers: Yes Patient to Obtain Answers: via Family Medications Transportation Arranged Answers: Family/Friends Family Notified Answers: Yes Discharge Comments Notes: Pt will dc home w/sister in law who will stay with her initially and then son who lives in [facility] able to come help. PT recommending outpt PT which patient said she plans on doing. Met w/pt to discuss dc plan and she did not feel she needed any HHC. Discussed w/RN and Dr Ariza. Date Signed: 06/09/2017 02:40 PM Electronically Signed By:Keesha Romero RN Intervention Information Intervention Type:*Incorrect Registration Date of Service:06/07/2017 09:35 AM Patient Type:Inpatient Staff Member:VITALIY Cruz Courtney Hours: Discipline: Severity: Comment:
[2017-06-10] MEDS ORDERED: LEVOTHYROXINE 75 MCG TAB PO SCH (06:00)
== END 2017-06-09 13:52 | disposition home or self-care (01) | DRG 494 ==
LOC: EDUNIT# → INTOOBSV 20:04 → F3N 21:37 → OBSVTOIN 06-07 17:47
PROVIDERS: ADMIT Hospitalist; ATTEND Internal Medicine
PROC: 0PSC04Z Reposition Right Humeral Head with Internal Fixation Device, Open Approach (ICD-10-PCS; principal; 2017-06-08 12:30)
DX: S42.201A Unspecified fracture of upper end of right humerus, initial encounter for closed fracture (principal); W01.0XXA Fall on same level from slipping, tripping and stumbling without subsequent striking against object, initial encounter; Y92.248 Other public administrative building as the place of occurrence of the external cause; E03.9 Hypothyroidism, unspecified; E78.00 Pure hypercholesterolemia, unspecified; G47.33 Obstructive sleep apnea (adult) (pediatric); F41.8 Other specified anxiety disorders; M81.0 Age-related osteoporosis without current pathological fracture; Z96.641 Presence of right artificial hip joint; Z87.891 Personal history of nicotine dependence
CPT/HCPCS: 96374; 97110-GP; 97161-GP; 97165-GO; C1713; C1769; G0378; G8978-GP-CI; G8979-GP-CI; G8980-GP-CI; G8987-GO-CI; G8988-GO-CI; G8989-GO-CI; J0690; J1885; J2250; J2405; J2704; J2795; J3010

== ENCOUNTER → 2017-10-01 | Outpatient (CLI) | payer OTHER | LOC: FIMAGING 12:09 | PROVIDERS: ATTEND Obstetrics & Gynecology Gynecology | DX: Z12.31 Encounter for screening mammogram for malignant neoplasm of breast (principal); Z80.3 Family history of malignant neoplasm of breast ==

== ENCOUNTER → 2017-10-11 | Outpatient (CLI) | payer OTHER | LOC: FIMAGING 10:17 | PROVIDERS: ATTEND Obstetrics & Gynecology Gynecology | DX: N63.22 Unspecified lump in the left breast, upper inner quadrant (principal) ==

== ENCOUNTER → 2017-10-14 | Outpatient (CLI) | payer OTHER | LOC: FCPNEURO 23:32 | PROVIDERS: ATTEND Psychiatry & Neurology Sleep Medicine | DX: G47.33 Obstructive sleep apnea (adult) (pediatric) (principal) ==

== ENCOUNTER → 2017-10-24 | Day surgery (SDC) | payer OTHER ==
[~2017-10-24] MED LIST: BUPIVACAINE 0.5% 30 ML SDV ONE; LIDOCAINE 1% 300 MG/30 ML SDV ONE; THROMBIN (BOVINE) 5,000 UNIT VIAL TP ONE
== END | disposition home or self-care (01) ==
LOC: FIMAGING 07:28
PROVIDERS: ATTEND Obstetrics & Gynecology Gynecology
DX: D24.2 Benign neoplasm of left breast (principal)

== ENCOUNTER → 2018-04-08 | Outpatient (CLI) | payer OTHER | LOC: FIMAGING 09:50 | PROVIDERS: ATTEND Internal Medicine | DX: R92.8 Other abnormal and inconclusive findings on diagnostic imaging of breast (principal) ==

== ENCOUNTER → 2018-10-08 | Outpatient (CLI) | payer OTHER | LOC: FIMAGING 14:59 | PROVIDERS: ATTEND Obstetrics & Gynecology Gynecology | DX: R92.8 Other abnormal and inconclusive findings on diagnostic imaging of breast (principal) ==